=== PATIENT | male | born 2000 | race Hispanic/Latino ===

== ENCOUNTER 2019-06-21 11:03 | Emergency (ER) | payer OTHER ==
[2019-06-21] MEDS ORDERED: TETRACAINE HCL 0.5% 4ML OPTH ONE (12:49)
[2019-06-21] MEDS ORDERED: FLUORESCEIN SODIUM 1 MG/WRAP ONE (12:50)
[2019-06-21] MEDS ORDERED: TOBRAMYCIN SULF 0.3% OPTH OINT ONE (13:41)
--- NOTE | 2019-06-21 13:44 | ER ---
Nurse's Notes [facility] Name: Lyndon Elam Age: 18 yrs Sex: Male : 2000 Arrival Date: 06/21/2019 Time: 11:59 Bed 23 Private MD: Diagnosis: Injury of conjunctiva and corneal abrasion without foreign body, right eye;right conjunctival foreign body - removed Presentation: 06/21 11:59 Presenting complaint: Patient states: Pt C/O redness in eye for 2 days now feels like wh foreign object in Right eye. Transition of care: Pt is from [facility]. Onset of symptoms was June 19, 2019. Risk Assessment: Do you want to hurt yourself or someone else? Patient reports no desire to harm self or others. Initial Sepsis Screen: Does the patient meet any 2 criteria? No. Patient's initial sepsis screen is negative. Does the patient have a suspected source of infection? No. Patient's initial sepsis screen is negative. Care prior to arrival: None. 11:59 Method Of Arrival: Ambulatory 11:59 Acuity: EVANS 4 Triage Assessment: 12:03 General: Appears. Historical: - Allergies: 12:03 No Known Allergies; - Home Meds: 12:03 None [Active]; - PMHx: 12:03 None; - PSHx: 12:03 None; - Immunization history:: Adult Immunizations not up to date. - Social history:: Smoking status: Patient/guardian denies using tobacco. - Ebola Screening: : Patient negative for fever greater than or equal to 101.5 degrees Fahrenheit, and additional compatible Ebola Virus Disease symptoms Patient denies exposure to infectious person. Screenin:02 Abuse screen: Denies threats or abuse. Denies injuries from another. Nutritional screening: No deficits noted. Tuberculosis screening: No symptoms or risk factors identified. Fall Risk None identified. Assessment: 12:03 General: Appears in no apparent distress. Behavior is calm, cooperative, appropriate for age. Pain: Complains of pain in right eye Pain does not radiate. Pain currently is 5 out of 10 on a pain scale. Pain began 2-3 days ago. Neuro: Level of Consciousness is awake, alert, obeys commands, Oriented to person, place, time, situation, Appropriate for age. Cardiovascular: Capillary refill < 3 seconds. Respiratory: Airway is patent Respiratory effort is even, unlabored, Respiratory pattern is regular, symmetrical. GI: Abdomen is flat, non-distended. : No signs and/or symptoms were reported regarding the genitourinary system. EENT: Eyes are tearing on Right eye Redness. Derm: Skin is intact, is healthy with good turgor, Skin is pink, warm \T\ dry. normal. Musculoskeletal: Circulation, motion, and sensation intact. 13:53 Reassessment: Patient appears in no apparent distress at this time. No changes from previously documented assessment. Patient and/or family updated on plan of care and expected duration. Pain level reassessed. Patient is alert, oriented x 3, equal unlabored respirations, skin warm/dry/pink. Vital Signs: 12:02 BP 121 / 73; Pulse 60; Resp 18; Temp 99; Pulse Ox 100% ; Weight 57.15 kg; Height 5 ft. 5 in. (165.10 cm); 13:57 BP 106 / 92; Pulse 98; Resp 18; Pulse Ox 100% on R/A; 12:02 Body Mass Index 20.97 (57.15 kg, 165.10 cm) Visual Acuity: 12:52 Left Eye Visual acuity 20/20, Normal; Right Eye Visual acuity 20/70, Normal; Without Lenses; ED Course: 11:59 Patient arrived in ED. 11:59 Aaron Stanton is Primary Nurse. 12:01 Triage completed. 12:04 Arm band placed on right wrist. 12:04 Patient has correct armband on for positive identification. Bed in low position. Call light in reach. Side rails up X 1. Pulse ox on. NIBP on. 12:37 Magalie Dong FNP-C [facility]. snw 12:37 Geraldo Everett MD is Attending Physician. snw 13:20 Assist provider with eye exam of right eye. using fluorescein stain, Performed by Magalie CONRAD Dressed with eye patch Patient tolerated well. 13:58 Patient did not have IV access during this emergency room visit. Administered Medications: 13:30 Drug: Tetracaine Drops 0.5 % 1 drops {Note: Administered By Magalie Dong GASTROENTEROLOGY NURSE PRACTITIONER.} Route: Ophthalmic; Site: right eye; 13:58 Follow up: Response: No adverse reaction 13:41 CANCELLED (other intervention used): Gentamicin Ointment 0.3 % 0.5 inches Ophthalmic snw once; Right Eye 13:42 Drug: Tobramycin Ointment (0.3 %) 0.5 inches Route: Ophthalmic; Site: right eye; 13:58 Follow up: Response: No adverse reaction Outcome: 13:44 Discharge ordered by . snw 13:55 Discharged to Law Enforcement 13:55 Condition: stable 13:55 Discharge instructions given to patient, police, Instructed on discharge instructions, follow up and referral plans. medication usage, POC Corneal Abrasion and Foreign Body in Eye Demonstrated understanding of instructions, follow-up care, medications, POC Prescriptions given X 1. 13:58 Patient left the ED. Signatures: Magalie Dong, BOILER WASHER-C BOILER WASHER-Csnw Aaron Stanton
--- NOTE | 2019-06-21 13:45 | EDPHYS ---
Physician Documentation [facility] Name: Lyndon Elam Age: 18 yrs Sex: Male : 2000 Arrival Date: 06/21/2019 Time: 11:59 Bed 23 Private MD: ED Physician Geraldo Everett HPI: 06/21 13:41 This 18 yrs old Male presents to ER via Ambulatory with complaints of fb snw sensation. 13:41 The patient is experiencing foreign body sensation, pain, redness, tearing, The patient snw sustained Unknown. to the right eye, caused by an unknown mechanism. Onset: The symptoms/episode began/occurred suddenly, 2 day(s) ago, and became persistent. Duration: the symptoms are continuous. Associated signs and symptoms: Pertinent positives: None. Patient does not utilize any form of vision correction. Severity of symptoms: At their worst the symptoms were moderate severe. The patient has not experienced similar symptoms in the past. It is unknown whether or not the patient has recently seen a physician. Historical: - Allergies: 12:03 No Known Allergies; - Home Meds: 12:03 None [Active]; - PMHx: 12:03 None; - PSHx: 12:03 None; - Immunization history:: Adult Immunizations not up to date. - Social history:: Smoking status: Patient/guardian denies using tobacco. - Ebola Screening: : Patient negative for fever greater than or equal to 101.5 degrees Fahrenheit, and additional compatible Ebola Virus Disease symptoms Patient denies exposure to infectious person. ROS: 13:40 Constitutional: Negative for fever, chills, and weight loss, ENT: Negative for injury, snw pain, and discharge, Neck: Negative for injury, pain, and swelling, Cardiovascular: Negative for chest pain, palpitations, and edema, Respiratory: Negative for shortness of breath, cough, wheezing, and pleuritic chest pain, Abdomen/GI: Negative for abdominal pain, nausea, vomiting, diarrhea, and constipation, Back: Negative for injury and pain, : Negative for injury, bleeding, discharge, and swelling, MS/Extremity: Negative for injury and deformity, Skin: Negative for injury, rash, and discoloration, Neuro: Negative for headache, weakness, numbness, tingling, and seizure. 13:40 Eyes: Positive for foreign body sensation, injury or acute deformity, pain, tearing. Exam: 13:37 Constitutional: This is a well developed, well nourished patient who is awake, alert, snw and in no acute distress. Head/Face: Normocephalic, atraumatic. ENT: Nares patent. No nasal discharge, no septal abnormalities noted. Tympanic membranes are normal and external auditory canals are clear. Oropharynx with no redness, swelling, or masses, exudates, or evidence of obstruction, uvula midline. Mucous membranes moist. Neck: Trachea midline, no thyromegaly or masses palpated, and no cervical lymphadenopathy. Supple, full range of motion without nuchal rigidity, or vertebral point tenderness. No Meningismus. Chest/axilla: Normal chest wall appearance and motion. Nontender with no deformity. No lesions are appreciated. Cardiovascular: Regular rate and rhythm with a normal S1 and S2. No gallops, murmurs, or rubs. Normal PMI, no JVD. No pulse deficits. Respiratory: Lungs have equal breath sounds bilaterally, clear to auscultation and percussion. No rales, rhonchi or wheezes noted. No increased work of breathing, no retractions or nasal flaring. Abdomen/GI: Soft, non-tender, with normal bowel sounds. No distension or tympany. No guarding or rebound. No evidence of tenderness throughout. Back: No spinal tenderness. No costovertebral tenderness. Full range of motion. Skin: Warm, dry with normal turgor. Normal color with no rashes, no lesions, and no evidence of cellulitis. MS/ Extremity: Pulses equal, no cyanosis. Neurovascular intact. Full, normal range of motion. Neuro: Awake and alert, GCS 15, oriented to person, place, time, and situation. Cranial nerves II-XII grossly intact. Motor strength 5/5 in all extremities. Sensory grossly intact. Cerebellar exam normal. Normal gait. Psych: Awake, alert, with orientation to person, place and time. Behavior, mood, and affect are within normal limits. 13:37 Eyes: Conjunctiva: injected, in the right eye, Corneas: abrasion, that is small, on the right, at 6 o'clock, foreign body, at 6 o'clock, dirt, a fluorescein strip employed to appreciate the findings, Anterior chamber: normal, Lids and lashes: appear normal, funduscopic exam reveals no obvious abnormalities. Vital Signs: 12:02 BP 121 / 73; Pulse 60; Resp 18; Temp 99; Pulse Ox 100% ; Weight 57.15 kg; Height 5 ft. wh 5 in. (165.10 cm); 13:57 BP 106 / 92; Pulse 98; Resp 18; Pulse Ox 100% on R/A; wh 12:02 Body Mass Index 20.97 (57.15 kg, 165.10 cm) Visual Acuity: 12:52 Left Eye Visual acuity 20/20, Normal; Right Eye Visual acuity 20/70, Normal; Without wh Lenses; Procedures: 13:37 Foreign Body Removal: dirt, from the right eye, conjunctiva by needle, Dressing: none, snw The patient tolerated the removal well. 13:39 Eye Exam: fb noted on right conjunctiva just below right pupil at 6 O'clock. snw MDM: 12:37 Patient medically screened. snw 13:47 Data reviewed: vital signs, nurses notes. Data interpreted: Pulse oximetry: on room air snw is 100 %. Interpretation: normal. Counseling: I had a detailed discussion with the patient and/or guardian regarding: the historical points, exam findings, and any diagnostic results supporting the discharge/admit diagnosis, the need for outpatient follow up, to return to the emergency department if symptoms worsen or persist or if there are any questions or concerns that arise at home. Special discussion: Based on the history and exam findings, there is no indication for further emergent testing or inpatient evaluation. I discussed with the patient/guardian the need to see the opthamologist for further evaluation of the symptoms, I discussed with the patient/guardian the need to see the primary care provider for further evaluation of the symptoms. 06/21 12:39 Order name: Visual Acuity; Complete Time: 12:51 snw 06/21 12:39 Order name: Eye Tray; Complete Time: 12:51 snw 06/21 12:39 Order name: Fluoresene Opth strip; Complete Time: 12:51 snw 06/21 12:39 Order name: Misc. Order: NS flushes and 4x4s to bedside; Complete Time: 12:50 snw Administered Medications: 13:30 Drug: Tetracaine Drops 0.5 % 1 drops {Note: Administered By Magalie Dong NP.} Route: Ophthalmic; Site: right eye; 13:58 Follow up: Response: No adverse reaction 13:41 CANCELLED (other intervention used): Gentamicin Ointment 0.3 % 0.5 inches Ophthalmic snw once; Right Eye 13:42 Drug: Tobramycin Ointment (0.3 %) 0.5 inches Route: Ophthalmic; Site: right eye; 13:58 Follow up: Response: No adverse reaction Disposition: 06/21/19 13:44 Discharged to Home. Impression: Injury of conjunctiva and corneal abrasion without foreign body, right eye, right conjunctival foreign body - removed. - Condition is Stable. - Discharge Instructions: Corneal Abrasion, Eye Foreign Body. - Prescriptions for Polytrim 10,000 unit- 1 mg/mL Ophthalmic drops - instill 2 drop by OPHTHALMIC route every 4 hours for 7 days to right eye; 1 Container. - Medication Reconciliation Form, Thank You Letter, Antibiotic Education, Prescription Opioid Use form. - Follow up: Private Physician; When: 1 - 2 days; Reason: Recheck today's complaints, Continuance of care, Re-evaluation by your physician. Follow up: Emergency Department; When: As needed; Reason: Worsening of condition. Addendum: 06/25/2019 06:27 Co-signature as Attending Physician, Geraldo Everett MD I agree with the assessment and k dr plan of care. Signatures: Geraldo Everett MD MD [facility] Magalie Dong, EMBROIDERY SPECIALIST-C EMBROIDERY SPECIALIST-Csnw Aaron Stanton Corrections: (The following items were deleted from the chart) 06/21 13:41 13:37 Gentamicin Ointment 0.3 % 0.5 inches Ophthalmic once; Right Eye ordered. snw snw 13:58 13:44 06/21/2019 13:44 Discharged to Home. Impression: Injury of conjunctiva and wh corneal abrasion without foreign body, right eye; right conjunctival foreign body - removed. Condition is Stable. Forms are Medication Reconciliation Form, Thank You Letter, Antibiotic Education, Prescription Opioid Use. Follow up: Private Physician; When: 1 - 2 days; Reason: Recheck today's complaints, Continuance of care, Re-evaluation by your physician. Follow up: Emergency Department; When: As needed; Reason: Worsening of condition. snw
[2019-06-21 14:04] VITALS: TEMP 99; O2SAT 100
[2019-06-21 14:06] VITALS: BP 106/92
== END 2019-06-21 13:58 | disposition home or self-care (01) ==
LOC: ER 11:03
PROC: 08CSXZZ Extirpation of Matter from Right Conjunctiva, External Approach (ICD-10-PCS; principal; 2019-06-21)
DX: T15.11XA Foreign body in conjunctival sac, right eye, initial encounter (principal); T15.01XA Foreign body in cornea, right eye, initial encounter; X58.XXXA Exposure to other specified factors, initial encounter